=== PATIENT | male | born 1950 | race Asian ===

== ENCOUNTER 2018-05-14 22:07 | Emergency (ER) | payer MEDICARE, OTHER ==
[~2018-05-14] VITALS: Ht 167.6 cm; Wt 69.0 kg
[2018-05-15 06:16] VITALS: BP 169/74
== END 2018-05-15 06:18 | disposition home or self-care (01) ==
LOC: EDSEX 22:07 → ER 22:07
DX: R42 Dizziness and giddiness (principal); I10 Essential (primary) hypertension; W18.39XA Other fall on same level, initial encounter; Y93.89 Activity, other specified; Y92.89 Other specified places as the place of occurrence of the external cause; Y99.8 Other external cause status
CPT/HCPCS: 93005; 99283

== ENCOUNTER 2018-05-18 13:38 | Emergency (ER) | payer MEDICARE, OTHER ==
[~2018-05-18] VITALS: Ht 170.2 cm; Wt 80.0 kg
[2018-05-18 16:43] LABS: BASOPHILS % 0.7 % (0.0-2.0); EOSINOPHILS % 0.8 % (0.0-5.0); HEMATOCRIT. 38.6 % (42.0-52.0); HEMOGLOBIN. 12.1 g/dL (14.0-18.0); LYMPHOCYTES % 18.9 % (20.0-50.0); MEAN CORPUSCULAR HEMOGLOBIN 22.6 pg (28.0-32.0); MEAN CORPUSCULAR VOLUME 72.4 fL (80.0-94.0); MEAN PLATELET VOLUME 8.3 fl (7.4-10.4); MONOCYTES % 13.3 % (2.0-8.0); NEUTROPHILS % 66.3 % (40.0-76.0); PLATELET 214 x1000/uL (130-400); RED BLOOD CELL COUNT 5.33 mill/uL (4.7-6.1); RED CELL DISTRIBUTION WIDTH 15.4 % (11.6-14.6)
[2018-05-18 16:47] LABS: CHLORIDE 104 mEq/L (98-107)
[2018-05-18 22:25] VITALS: BP 140/80
== END 2018-05-18 22:30 | disposition home or self-care (01) ==
LOC: ER 13:38
DX: R55 Syncope and collapse (principal)
CPT/HCPCS: 36415; 93005; 99284

== ENCOUNTER 2019-03-17 12:39 | Inpatient (IN) | payer MEDICARE, OTHER ==
[~2019-03-17] VITALS: Ht 167.6 cm; Wt 63.5 kg
[2019-03-17] MEDS ORDERED: SODIUM CHLORIDE 0.9% 1,000 ML IV ONE (13:21)
[2019-03-17 14:31] LABS: BASOPHILS % 0.5 % (0.0-2.0); EOSINOPHILS % 1.6 % (0.0-5.0); HEMATOCRIT. 36.9 % (42.0-52.0); HEMOGLOBIN. 11.8 g/dL (14.0-18.0); LYMPHOCYTES % 15.6 % (20.0-50.0); MEAN PLATELET VOLUME 8.3 fl (7.4-10.4); MONOCYTES % 10.7 % (2.0-8.0); NEUTROPHILS % 71.6 % (40.0-76.0); PLATELET 225 x1000/uL (130-400); RED BLOOD CELL COUNT 4.92 mill/uL (4.7-6.1); RED CELL DISTRIBUTION WIDTH 15.9 % (11.6-14.6)
[2019-03-17 14:40] LABS: CHLORIDE 110 mEq/L (98-107)
[2019-03-17] MEDS ORDERED: CEFTRIAXONE 1 G PREMIX 50 ML IV ONE (15:30)
[2019-03-17 15:40] LABS: CLARITY URINE CLOUDY (CLEAR); COLOR URINE DARK YELLOW (YELLOW); KETONES URINE TRACE (NEGATIVE); LEUKOCYTE ESTERASE URINE 1+ (NEGATIVE); NITRITE URINE NEGATIVE (NEGATIVE); OCCULT BLOOD URINE 2+ (NEGATIVE); PROTEIN URINE 3+ (NEGATIVE); SPECIFIC GRAVITY URINE 1.018 (1.005-1.030); UROBILINOGEN URINE 0.2 E.U./dL (0.2-1.0)
[2019-03-17] MEDS ORDERED: CLONIDINE 0.2MG TABLET PO ONE (16:45)
[2019-03-17] MEDS ORDERED: HYDRALAZINE 20MG/ML VIAL IV ONE (20:00)
[2019-03-18] VITALS (7 sets, daily range): BP systolic 108–151; BP diastolic 65–81
[2019-03-18] MEDS ORDERED: CARB-121 PO ×2 (02:55)
[2019-03-18] MEDS ORDERED: MIDO10TA PO (02:55)
[2019-03-18] MEDS ORDERED: ASPI-1393 PO (02:55)
[2019-03-18] MEDS ORDERED: CALC650T PO (02:55)
[2019-03-18] MEDS ORDERED: AMAN100T PO (02:55)
[2019-03-18] MEDS ORDERED: TOPUD PO (02:55)
[2019-03-18] MEDS ORDERED: SENN17.27 PO (02:55)
[2019-03-18] MEDS ORDERED: CHOL200010 PO (02:55)
[2019-03-18] MEDS ORDERED: CARB1TAB5 PO (02:55)
[2019-03-18] MEDS ORDERED: ALLO100T PO (02:55)
[2019-03-18] MEDS ORDERED: ALEN70SO3 PO (02:55)
[2019-03-18] MEDS ORDERED: ACETAMINOPHEN 325MG TABLET PO PRN ×2 (03:45→22:00)
[2019-03-18] MEDS: AMLODIPINE 10MG TABLET PO SCH (08:49)
[2019-03-18] MEDS: CEFTRIAXONE 1 G PREMIX 50 ML IV SCH (14:42)
[2019-03-18] MEDS ORDERED: MEDICATION NOT ON FORMULARY EA (Cholecalciferol (Vitamin D3) (Vitamin D3) 2,000 UNIT) PO SCH (22:00)
[2019-03-18] MEDS ORDERED: CALCIUM CARBONATE 650 MG PO SCH (22:00)
[2019-03-18] MEDS ORDERED: MEDICATION NOT ON FORMULARY EA (Midodrine Hcl 10 MG) PO SCH (22:00)
[2019-03-18] MEDS ORDERED: CARBIDOPA PO SCH (22:00)
[2019-03-18] MEDS ORDERED: LEVODOPA PO SCH (22:00)
[2019-03-18] MEDS ORDERED: MEDICATION NOT ON FORMULARY EA (Alendronate Sodium 70 MG) PO SCH (22:00)
[2019-03-18] MEDS ORDERED: ENTACAPONE PO SCH (22:00)
[2019-03-18] MEDS ORDERED: [UNRECOGNIZED DRUG - OTHER] PO SCH (22:00)
[2019-03-18] MEDS ORDERED: AMANTADINE HCL 100 MG PO SCH (22:00)
[2019-03-18] MEDS: ALLOPURINOL 100 MG TABLET PO SCH (22:31)
[2019-03-18] MEDS: ASPIRIN 81MG EC TABLET PO SCH (22:31)
[2019-03-18] MEDS ORDERED: CARBIDOPA/LEVODOPA 25/100MG TABLET CR PO SCH (23:00)
[2019-03-18 23:44] LABS: BASOPHILS % 1.2 % (0.0-2.0); EOSINOPHILS % 1.2 % (0.0-5.0); HEMATOCRIT. 35.6 % (42.0-52.0); HEMOGLOBIN. 11.5 g/dL (14.0-18.0); LYMPHOCYTES % 20.3 % (20.0-50.0); MEAN CORPUSCULAR VOLUME 74.4 fL (80.0-94.0); MEAN PLATELET VOLUME 8.2 fl (7.4-10.4); MONOCYTES % 13.9 % (2.0-8.0); NEUTROPHILS % 63.4 % (40.0-76.0); PLATELET 201 x1000/uL (130-400); RED BLOOD CELL COUNT 4.79 mill/uL (4.7-6.1); RED CELL DISTRIBUTION WIDTH 15.8 % (11.6-14.6)
[2019-03-18 23:51] LABS: CHLORIDE 111 mEq/L (98-107)
[2019-03-19] VITALS (7 sets, daily range): BP systolic 114–149; BP diastolic 63–84
[2019-03-19] MEDS: CARBIDOPA/LEVODOPA 25/100MG TABLET PO SCH ×4 (05:56→16:20)
[2019-03-19] MEDS: ENTACAPONE 200MG TABLET PO SCH ×4 (05:56→16:20)
[2019-03-19] MEDS ORDERED: CHOLECALCIFEROL (D3) 1000 UNIT TABLET PO SCH (09:00)
[2019-03-19] MEDS: CALCIUM CARBONATE 1250MG TABLET (500MG ELEMENTAL CALCIUM) PO SCH ×2 (09:07→16:21)
[2019-03-19] MEDS: ASPIRIN 81MG EC TABLET PO SCH (09:07)
[2019-03-19] MEDS: MIDODRINE HCL 5MG TABLET PO SCH ×2 (09:07→16:24)
[2019-03-19] MEDS: AMANTADINE HCL 100 MG CAPSULE PO SCH ×2 (09:08→16:21)
[2019-03-19] MEDS: ALLOPURINOL 100 MG TABLET PO SCH ×2 (09:08→16:21)
[2019-03-19] MEDS: AMLODIPINE 10MG TABLET PO SCH (09:08)
[2019-03-19] MEDS: CEFTRIAXONE 1 G PREMIX 50 ML IV SCH (13:40)
[2019-03-19 18:16] LABS: T4 FREE 0.84 ng/dL (0.76-1.46)
[2019-03-19] MEDS ORDERED: SENNOSIDES 8.6MG TABLET PO SCH (21:00)
[2019-03-19] MEDS ORDERED: SENNOSIDES 17.2 MG PO SCH (21:00)
[2019-03-22] MEDS ORDERED: ALENDRONATE SODIUM 35MG TABLET PO SCH (07:40)
== END 2019-03-19 20:26 | DRG 690 ==
LOC: ER 12:39 → 7WST 21:00 → ENRESERV 23:58
PROVIDERS: ADMIT Family Medicine; ATTEND Family Medicine
DX: N39.0 Urinary tract infection, site not specified (principal); E11.22 Type 2 diabetes mellitus with diabetic chronic kidney disease; E55.9 Vitamin D deficiency, unspecified; G20 Parkinson's disease; R26.9 Unspecified abnormalities of gait and mobility; I12.9 Hypertensive chronic kidney disease with stage 1 through stage 4 chronic kidney disease, or unspecified chronic kidney disease; M10.9 Gout, unspecified; N18.9 Chronic kidney disease, unspecified; E78.5 Hyperlipidemia, unspecified; K21.9 Gastro-esophageal reflux disease without esophagitis; Z88.8 Allergy status to other drugs, medicaments and biological substances; Z79.899 Other long term (current) drug therapy; Z79.82 Long term (current) use of aspirin
CPT/HCPCS: 36415; 76770; 80061; 81003; 82962; 83036; 83880; 84439; 84443; 84484; 85379; 87186; 93005; 93306; 96361; 96365; 96375; 99291; J0360; J0696; J7030

== ENCOUNTER 2019-07-17 10:49 | Inpatient (IN) | payer MEDICARE, OTHER ==
[~2019-07-17] VITALS: Ht 167.6 cm; Wt 64.4 kg
[~2019-07-17 10:49] MED LIST: ALEN70SO3 PO; ALLO100T PO; AMAN100T PO; ASPI-1497 PO; CALC650T PO; CARB-121 PO; CARB1TAB5 PO; CHOL200010 PO; MIDO10TA PO; SENN17.27 PO; TOPUD PO
[2019-07-17 11:31] LABS: HEMOGLOBIN. 11.5 g/dL (14.0-18.0); MEAN CORPUSCULAR HEMOGLOBIN 24.1 pg (28.0-32.0); MEAN CORPUSCULAR VOLUME 73.4 fL (80.0-94.0); MEAN PLATELET VOLUME 8.6 fl (7.4-10.4); PLATELET 139 x1000/uL (130-400); RED BLOOD CELL COUNT 4.78 mill/uL (4.7-6.1)
[2019-07-17 11:34] LABS: CHLORIDE 106 mEq/L (98-107)
[2019-07-17 13:01] LABS: PLATELET ESTIMATE NORMAL
[2019-07-17] MEDS ORDERED: VANCOMYCIN 1 G PREMIX 200 ML IV ONE (13:45)
[2019-07-17] MEDS ORDERED: PIPERACILLIN/TAZ 3.375G PREMIX 50 ML IV ONE (13:45)
[2019-07-17] MEDS ORDERED: CLONIDINE 0.1MG TABLET PO PRN (16:00)
[2019-07-17] MEDS ORDERED: GUAIFENESIN 200MG/10ML SUGAR FREE UDC PO PRN (16:00)
[2019-07-17] MEDS ORDERED: ACETAMINOPHEN 650MG SUPP PR PRN ×2 (16:00)
[2019-07-17] MEDS ORDERED: DOCUSATE SODIUM 100MG CAPSULE PO PRN (16:00)
[2019-07-17] MEDS ORDERED: ACETAMINOPHEN 325MG TABLET PO SCH (16:00)
[2019-07-17] MEDS ORDERED: AMLODIPINE 10MG TABLET PO SCH (16:30)
[2019-07-17] MEDS ORDERED: ALLOPURINOL 100 MG TABLET PO NR ×2 (17:06→17:30)
[2019-07-17] MEDS ORDERED: AZITHROMYCIN 500 MG in DEXT 5% WATER 250 ML IV SCH (17:15)
[2019-07-17] MEDS ORDERED: SODIUM CHLORIDE 0.45% 1,000 ML IV SCH (17:19)
[2019-07-17 17:27] LABS: CLARITY URINE CLEAR (CLEAR); COLOR URINE YELLOW (YELLOW); KETONES URINE NEGATIVE (NEGATIVE); LEUKOCYTE ESTERASE URINE TRACE (NEGATIVE); NITRITE URINE POSITIVE (NEGATIVE); OCCULT BLOOD URINE NEGATIVE (NEGATIVE); PROTEIN URINE NEGATIVE (NEGATIVE); SPECIFIC GRAVITY URINE 1.009 (1.005-1.030); UROBILINOGEN URINE 0.2 E.U./dL (0.2-1.0)
[2019-07-17] MEDS ORDERED: BENAZEPRIL 5MG TABLET PO SCH (17:30)
[2019-07-17] MEDS ORDERED: ASPIRIN 81MG EC TABLET PO SCH (17:30)
[2019-07-17] MEDS ORDERED: CARBIDOPA/LEVODOPA 25/100MG TABLET CR PO SCH ×2 (17:30→21:00)
[2019-07-18 00:10] VITALS: BP 152/78
[2019-07-18] MEDS: ACETAMINOPHEN 650MG/20.3ML UDC GT PRN (01:17)
[2019-07-18 06:32] VITALS: BP 120/68
[2019-07-18 06:52] LABS: HEMATOCRIT. 33.1 % (42.0-52.0); HEMOGLOBIN. 10.9 g/dL (14.0-18.0); MEAN CORPUSCULAR VOLUME 72.7 fL (80.0-94.0); MEAN PLATELET VOLUME 8.4 fl (7.4-10.4); PLATELET 127 x1000/uL (130-400); RED BLOOD CELL COUNT 4.55 mill/uL (4.7-6.1); RED CELL DISTRIBUTION WIDTH 15.9 % (11.6-14.6)
[2019-07-18 07:23] LABS: CHLORIDE 105 mEq/L (98-107)
[2019-07-18 07:32] LABS: LDL CHOLESTEROL 82 mg/dL (5-100)
[2019-07-18 07:33] LABS: HDL CHOLESTEROL 39 mg/dL (40-59)
[2019-07-18 08:00] VITALS: BP 128/83
[2019-07-18] MEDS: ALLOPURINOL 100 MG TABLET PO SCH ×2 (09:36→16:33)
[2019-07-18] MEDS: ASPIRIN 81MG EC TABLET PO SCH (09:36)
[2019-07-18] MEDS: AMLODIPINE 10MG TABLET PO SCH (09:36)
[2019-07-18] MEDS: BENAZEPRIL 5MG TABLET PO SCH (09:36)
[2019-07-18] MEDS ORDERED: BENZONATATE 100MG CAPSULE PO PRN (10:45)
[2019-07-18 12:00] VITALS: BP 114/64
[2019-07-18] MEDS: CEFTRIAXONE 1 G PREMIX 50 ML IV SCH (13:35)
[2019-07-18] MEDS: CARBIDOPA/LEVODOPA 25/100MG TABLET CR PO SCH ×3 (14:03→20:56)
[2019-07-18 14:06] LABS: NUCLEATED RED BLOOD CELLS 1 /100 WBC
[2019-07-18 14:07] LABS: PLATELET ESTIMATE SLIGHTLY DECREASED
[2019-07-18 16:00] VITALS: BP 138/74
[2019-07-18] MEDS ORDERED: AZITHROMYCIN 500 MG in DEXT 5% WATER 250 ML IV SCH (16:00)
[2019-07-18] MEDS: AZITHROMYCIN 250 MG in DEXT 5% WATER 250 ML IV SCH (16:33)
[2019-07-18 18:32] LABS: COVID-19 PCR RNA DETECTED
[2019-07-18 18:33] LABS: COVID-19 PCR RNA DETECTED
[2019-07-18 20:00] VITALS: BP 132/70
[2019-07-18] MEDS: ZINC SULFATE 220 MG ( 50 ) CAPSULE PO SCH (20:56)
[2019-07-18] MEDS: ASCORBIC ACID 500 MG TABLET PO SCH (20:56)
[2019-07-18] MEDS: THIAMINE HCL 100MG TABLET PO SCH (20:56)
[2019-07-18] MEDS: HYDROXYCHLOROQUINE SULFATE 200MG TABLET PO SCH (20:57)
[2019-07-19 00:05] VITALS: BP 130/70
[2019-07-19] MEDS: ACETAMINOPHEN 650MG/20.3ML UDC GT PRN ×3 (02:54→21:42)
[2019-07-19 04:00] VITALS: BP 121/70
[2019-07-19] MEDS: CARBIDOPA/LEVODOPA 25/100MG TABLET CR PO SCH ×5 (05:18→21:39)
[2019-07-19 08:00] VITALS: BP 122/66
[2019-07-19] MEDS: THIAMINE HCL 100MG TABLET PO SCH (09:06)
[2019-07-19] MEDS: HYDROXYCHLOROQUINE SULFATE 200MG TABLET PO SCH ×2 (09:06→16:29)
[2019-07-19] MEDS: ASCORBIC ACID 500 MG TABLET PO SCH ×2 (09:06→21:38)
[2019-07-19] MEDS: AMLODIPINE 10MG TABLET PO SCH (09:06)
[2019-07-19] MEDS: ASPIRIN 81MG EC TABLET PO SCH (09:06)
[2019-07-19] MEDS: ALLOPURINOL 100 MG TABLET PO SCH ×2 (09:06→16:29)
[2019-07-19] MEDS: ZINC SULFATE 220 MG ( 50 ) CAPSULE PO SCH (09:06)
[2019-07-19] MEDS: BENAZEPRIL 5MG TABLET PO SCH (09:06)
[2019-07-19] MEDS: CEFTRIAXONE 1 G PREMIX 50 ML IV SCH (11:05)
[2019-07-19 12:00] VITALS: BP_SYST 108; BP_SYST 124; BP_DIAS 56; BP_DIAS 73
[2019-07-19] MEDS: AZITHROMYCIN 250 MG in DEXT 5% WATER 250 ML IV SCH (15:25)
[2019-07-19 16:00] VITALS: BP 98/48
[2019-07-19 20:00] VITALS: BP 132/59
[2019-07-20] VITALS: BP 132/62
[2019-07-20] MEDS ORDERED: ALLOPURINOL 100 MG TABLET PO NR (01:30)
[2019-07-20 04:00] VITALS: BP 141/75
[2019-07-20] MEDS: ACETAMINOPHEN 650MG/20.3ML UDC GT PRN ×2 (06:43→21:49)
[2019-07-20] MEDS: CARBIDOPA/LEVODOPA 25/100MG TABLET CR PO SCH ×5 (06:43→20:46)
[2019-07-20 08:00] VITALS: BP 106/65
[2019-07-20] MEDS: HYDROXYCHLOROQUINE SULFATE 200MG TABLET PO SCH ×2 (09:54→17:16)
[2019-07-20] MEDS: ALLOPURINOL 100 MG TABLET PO SCH ×2 (09:54→17:16)
[2019-07-20] MEDS: ASCORBIC ACID 500 MG TABLET PO SCH ×2 (09:54→20:46)
[2019-07-20] MEDS: ZINC SULFATE 220 MG ( 50 ) CAPSULE PO SCH (09:54)
[2019-07-20] MEDS: BENAZEPRIL 5MG TABLET PO SCH (09:55)
[2019-07-20] MEDS: THIAMINE HCL 100MG TABLET PO SCH (09:55)
[2019-07-20] MEDS: ASPIRIN 81MG EC TABLET PO SCH (09:55)
[2019-07-20] MEDS: AMLODIPINE 10MG TABLET PO SCH (09:56)
[2019-07-20 12:00] VITALS: BP 114/63
[2019-07-20] MEDS: CEFTRIAXONE 1 G PREMIX 50 ML IV SCH (12:12)
[2019-07-20 16:00] VITALS: BP 140/62
[2019-07-20] MEDS: AZITHROMYCIN 250 MG in DEXT 5% WATER 250 ML IV SCH (17:16)
[2019-07-20 20:00] VITALS: BP 108/62
[2019-07-21] VITALS: BP 99/53
[2019-07-21 04:00] VITALS: BP 108/63
[2019-07-21] MEDS: CARBIDOPA/LEVODOPA 25/100MG TABLET CR PO SCH ×5 (06:14→20:41)
[2019-07-21] MEDS: ACETAMINOPHEN 650MG/20.3ML UDC GT PRN (06:15)
[2019-07-21 08:08] VITALS: BP 113/71
[2019-07-21] MEDS: HYDROXYCHLOROQUINE SULFATE 200MG TABLET PO SCH ×2 (09:24→18:11)
[2019-07-21] MEDS: ALLOPURINOL 100 MG TABLET PO SCH ×2 (09:24→18:11)
[2019-07-21] MEDS: ASPIRIN 81MG EC TABLET PO SCH (09:24)
[2019-07-21] MEDS: ZINC SULFATE 220 MG ( 50 ) CAPSULE PO SCH (09:24)
[2019-07-21] MEDS: AMLODIPINE 10MG TABLET PO SCH (09:25)
[2019-07-21] MEDS: ASCORBIC ACID 500 MG TABLET PO SCH ×2 (09:25→20:41)
[2019-07-21] MEDS: THIAMINE HCL 100MG TABLET PO SCH (09:25)
[2019-07-21] MEDS: BENAZEPRIL 5MG TABLET PO SCH (12:02)
[2019-07-21] MEDS: CEFTRIAXONE 1 G PREMIX 50 ML IV SCH (12:03)
[2019-07-21 12:04] VITALS: BP 109/62
[2019-07-21 16:00] VITALS: BP 114/63
[2019-07-21] MEDS: AZITHROMYCIN 250 MG TABLET PO SCH (18:11)
[2019-07-21 20:00] VITALS: BP 124/56
[2019-07-22] VITALS: BP 118/54
[2019-07-22 04:00] VITALS: BP 137/62
[2019-07-22] MEDS: CARBIDOPA/LEVODOPA 25/100MG TABLET CR PO SCH ×5 (06:26→21:09)
[2019-07-22 08:00] VITALS: BP 117/68
[2019-07-22] MEDS: HYDROXYCHLOROQUINE SULFATE 200MG TABLET PO SCH ×2 (10:05→17:34)
[2019-07-22] MEDS: ZINC SULFATE 220 MG ( 50 ) CAPSULE PO SCH (10:05)
[2019-07-22] MEDS: BENAZEPRIL 5MG TABLET PO SCH (10:05)
[2019-07-22] MEDS: ASCORBIC ACID 500 MG TABLET PO SCH ×2 (10:05→21:09)
[2019-07-22] MEDS: THIAMINE HCL 100MG TABLET PO SCH (10:05)
[2019-07-22] MEDS: ALLOPURINOL 100 MG TABLET PO SCH ×2 (10:06→17:34)
[2019-07-22] MEDS: ASPIRIN 81MG EC TABLET PO SCH (10:06)
[2019-07-22] MEDS: AMLODIPINE 10MG TABLET PO SCH (10:08)
[2019-07-22 12:00] VITALS: BP 118/61
[2019-07-22] MEDS: CEFTRIAXONE 1 G PREMIX 50 ML IV SCH (13:10)
[2019-07-22] MEDS: ACETAMINOPHEN 650MG/20.3ML UDC GT PRN (13:10)
[2019-07-22 16:00] VITALS: BP 117/70
[2019-07-22] MEDS: AZITHROMYCIN 250 MG TABLET PO SCH (17:34)
[2019-07-22 20:00] VITALS: BP 117/69
[2019-07-23] VITALS: BP 115/60
[2019-07-23 04:00] VITALS: BP 134/82
[2019-07-23 08:00] VITALS: BP 113/66
[2019-07-23] MEDS: ASPIRIN 81MG EC TABLET PO SCH (09:34)
[2019-07-23] MEDS: HYDROXYCHLOROQUINE SULFATE 200MG TABLET PO SCH (09:34)
[2019-07-23] MEDS: ASCORBIC ACID 500 MG TABLET PO SCH ×2 (09:34→21:17)
[2019-07-23] MEDS: THIAMINE HCL 100MG TABLET PO SCH (09:34)
[2019-07-23] MEDS: ZINC SULFATE 220 MG ( 50 ) CAPSULE PO SCH (09:35)
[2019-07-23] MEDS: AMLODIPINE 10MG TABLET PO SCH (09:35)
[2019-07-23] MEDS: ALLOPURINOL 100 MG TABLET PO SCH ×2 (09:35→20:04)
[2019-07-23] MEDS: BENAZEPRIL 5MG TABLET PO SCH (09:35)
[2019-07-23] MEDS: CARBIDOPA/LEVODOPA 25/100MG TABLET CR PO SCH ×5 (09:37→21:17)
[2019-07-23 12:00] VITALS: BP 122/83
[2019-07-23] MEDS: CEFTRIAXONE 1 G PREMIX 50 ML IV SCH (12:56)
[2019-07-23 16:00] VITALS: BP 152/73
[2019-07-23 20:00] VITALS: BP 122/71
[2019-07-24] VITALS: BP 115/60
[2019-07-24 04:00] VITALS: BP 125/73
[2019-07-24] MEDS: CARBIDOPA/LEVODOPA 25/100MG TABLET CR PO SCH ×5 (07:05→21:18)
[2019-07-24 08:00] VITALS: BP 162/132
[2019-07-24] MEDS: ASPIRIN 81MG EC TABLET PO SCH (08:57)
[2019-07-24] MEDS: ZINC SULFATE 220 MG ( 50 ) CAPSULE PO SCH (08:57)
[2019-07-24] MEDS: AMLODIPINE 10MG TABLET PO SCH (08:57)
[2019-07-24] MEDS: ASCORBIC ACID 500 MG TABLET PO SCH ×2 (08:57→21:18)
[2019-07-24] MEDS: BENAZEPRIL 5MG TABLET PO SCH (08:58)
[2019-07-24] MEDS: THIAMINE HCL 100MG TABLET PO SCH (08:58)
[2019-07-24] MEDS: ALLOPURINOL 100 MG TABLET PO SCH ×2 (08:58→19:10)
[2019-07-24 12:00] VITALS: BP 138/83
[2019-07-24] MEDS: ACETAMINOPHEN 650MG/20.3ML UDC GT PRN (12:02)
[2019-07-24 16:00] VITALS: BP 121/67
[2019-07-24 20:00] VITALS: BP 152/71
[2019-07-25] VITALS: BP 137/57
[2019-07-25 04:00] VITALS: BP 117/67
[2019-07-25] MEDS: CARBIDOPA/LEVODOPA 25/100MG TABLET CR PO SCH ×5 (06:31→20:48)
[2019-07-25 08:00] VITALS: BP 127/64
[2019-07-25] MEDS: THIAMINE HCL 100MG TABLET PO SCH (09:42)
[2019-07-25] MEDS: BENAZEPRIL 5MG TABLET PO SCH (09:42)
[2019-07-25] MEDS: ASCORBIC ACID 500 MG TABLET PO SCH ×2 (09:42→20:48)
[2019-07-25] MEDS: ALLOPURINOL 100 MG TABLET PO SCH ×2 (09:42→18:18)
[2019-07-25] MEDS: ZINC SULFATE 220 MG ( 50 ) CAPSULE PO SCH (09:42)
[2019-07-25] MEDS: ASPIRIN 81MG EC TABLET PO SCH (09:42)
[2019-07-25] MEDS: AMLODIPINE 10MG TABLET PO SCH (09:42)
[2019-07-25 16:00] VITALS: BP 129/69
[2019-07-25 20:00] VITALS: BP 117/79
[2019-07-26] VITALS: BP 112/64
[2019-07-26 04:00] VITALS: BP 159/80
[2019-07-26] MEDS: CARBIDOPA/LEVODOPA 25/100MG TABLET CR PO SCH ×4 (06:00→18:44)
[2019-07-26 08:00] VITALS: BP 137/77
[2019-07-26] MEDS: BENAZEPRIL 5MG TABLET PO SCH (09:55)
[2019-07-26] MEDS: ASPIRIN 81MG EC TABLET PO SCH (09:55)
[2019-07-26] MEDS: ASCORBIC ACID 500 MG TABLET PO SCH (09:55)
[2019-07-26] MEDS: THIAMINE HCL 100MG TABLET PO SCH (09:55)
[2019-07-26] MEDS: ZINC SULFATE 220 MG ( 50 ) CAPSULE PO SCH (09:55)
[2019-07-26] MEDS: ALLOPURINOL 100 MG TABLET PO SCH ×2 (09:55→18:44)
[2019-07-26] MEDS: AMLODIPINE 10MG TABLET PO SCH (09:55)
[2019-07-26 12:00] VITALS: BP 144/86
[2019-07-26 20:00] VITALS: BP 149/82
[2019-07-26 20:03] VITALS: BP 149/82
== END 2019-07-26 20:55 | disposition short-term general hospital (02) | DRG 871 ==
LOC: ER 10:49 → 7WST 13:24 → ENRESERV 22:45
PROVIDERS: ADMIT Family Medicine; ATTEND Family Medicine
DX: A41.89 Other specified sepsis (principal); U07.1 COVID-19; J12.89 Other viral pneumonia; J96.00 Acute respiratory failure, unspecified whether with hypoxia or hypercapnia; N39.0 Urinary tract infection, site not specified; I10 Essential (primary) hypertension; E11.9 Type 2 diabetes mellitus without complications; K21.9 Gastro-esophageal reflux disease without esophagitis; G20 Parkinson's disease; Z66 Do not resuscitate; F02.80 Dementia in other diseases classified elsewhere, unspecified severity, without behavioral disturbance, psychotic disturbance, mood disturbance, and anxiety; J20.8 Acute bronchitis due to other specified organisms; R13.10 Dysphagia, unspecified; Z78.9 Other specified health status; Z88.8 Allergy status to other drugs, medicaments and biological substances; Z79.899 Other long term (current) drug therapy; Z74.01 Bed confinement status
CPT/HCPCS: 36415; 71045; 80053; 80061; 81003; 82962; 84484; 85025; 87420; 87804; 93005; 97163; 99285; J0456; J0696; J2543; J3370; J7060

== ENCOUNTER 2021-09-21 22:29 | Emergency (ER) | payer MEDICARE, MEDICAID ==
[~2021-09-21] VITALS: Ht 167.6 cm; Wt 63.0 kg
[~2021-09-21 22:29] MED LIST changes: -ALEN70SO3 PO; +ALEN70TA79 PO; +AMAN100C18 PO; -AMAN100T PO; -CALC650T PO; +CALC650T30 PO; -CARB-121 PO; +CARB-32 PO; -CARB1TAB5 PO; +CYAN100T43 PO; +DOCU-138 PO; +DONE5TAB7 PO; +ENTA200T2 PO; +ESCI-7 PO; +FERR325T6 PO; +FOLI-43 PO; +MELA3CAP2 PO; +MOM PO; +SENN-257 PO
[2021-09-22 02:00] VITALS: BP 101/61
== END 2021-09-22 02:25 ==
LOC: ER 22:29
DX: S00.83XA Contusion of other part of head, initial encounter (principal); S01.21XA Laceration without foreign body of nose, initial encounter; I10 Essential (primary) hypertension; E11.9 Type 2 diabetes mellitus without complications; W06.XXXA Fall from bed, initial encounter; Y93.89 Activity, other specified; Y92.122 Bedroom in nursing home as the place of occurrence of the external cause; K21.9 Gastro-esophageal reflux disease without esophagitis; Z74.01 Bed confinement status; Z79.82 Long term (current) use of aspirin; Z79.84 Long term (current) use of oral hypoglycemic drugs; Z79.899 Other long term (current) drug therapy
CPT/HCPCS: 99284

== ENCOUNTER 2022-06-19 19:01 | Inpatient (IN) | payer MEDICARE, MEDICAID ==
[~2022-06-19] VITALS: Ht 167.6 cm; Wt 54.9 kg
[2022-06-19 20:27] LABS: HEMATOCRIT. 33.7 % (42.0-52.0); HEMOGLOBIN. 10.8 g/dL (14.0-18.0); MEAN CORPUSCULAR HEMOGLOBIN 23.1 pg (28.0-32.0); MEAN CORPUSCULAR VOLUME 72.2 fL (80.0-94.0); MEAN PLATELET VOLUME 7.6 fl (7.4-10.4); PLATELET 191 x1000/uL (130-400); RED BLOOD CELL COUNT 4.67 mill/uL (4.7-6.1); RED CELL DISTRIBUTION WIDTH 15.6 % (11.6-14.6)
[2022-06-19 20:41] LABS: CHLORIDE 111 mEq/L (98-107)
[2022-06-19 20:57] LABS: CREATINE KINASE 32 IU/L (39-308); ETHANOL BLOOD < 10 mg/dL
[2022-06-19 21:07] LABS: PLATELET ESTIMATE NORMAL
[2022-06-20] MEDS ORDERED: IPRATROPIUM/ALBUTEROL 0.5-3(2.5)MG/3ML NEB HHN PRN
[2022-06-20] MEDS ORDERED: NITROGLYCERIN 0.4MG TABLET SL SL ONE
[2022-06-20] MEDS ORDERED: CLONIDINE 0.1MG TABLET PO PRN
[2022-06-20] MEDS ORDERED: ONDANSETRON HCL 4MG/2ML INJ IV PRN
[2022-06-20] MEDS ORDERED: DEXTROSE 50% WATER 50ML SYRINGE IV PRN
[2022-06-20] MEDS ORDERED: ACETAMINOPHEN 650MG/20.3ML UDC GT PRN ×2
[2022-06-20 00:10] VITALS: BP 140/101
[2022-06-20] MEDS: INSULIN LISPRO 100 UNITS/ML SUBCUT SCH ×5 (00:30→20:32)
[2022-06-20] MEDS ORDERED: MEDICATION NOT ON FORMULARY EA (Alendronate Sodium 70 MG) PO SCH (00:45)
[2022-06-20] MEDS: CALCIUM CARBONATE 500MG TABLET CHEW PO SCH ×4 (01:17→17:34)
[2022-06-20] MEDS: DEXT 5%/0.45% NACL 1000ML 1,000 ML IV SCH ×2 (01:18→12:50)
[2022-06-20] MEDS ORDERED: BISA10SU62 RC (01:38)
[2022-06-20 04:00] VITALS: BP 155/90
[2022-06-20] MEDS: LACTULOSE 20G/30ML UDC PO SCH ×3 (05:09→21:07)
[2022-06-20 06:28] LABS: HEMATOCRIT. 40.9 % (42.0-52.0); MEAN CORPUSCULAR HEMOGLOBIN 23.4 pg (28.0-32.0); MEAN CORPUSCULAR VOLUME 73.9 fL (80.0-94.0); RED BLOOD CELL COUNT 5.53 mill/uL (4.7-6.1); RED CELL DISTRIBUTION WIDTH 15.8 % (11.6-14.6)
[2022-06-20] MEDS: BLOOD SUGAR DIAGNOSTIC STRIP TEST SCH ×4 (06:42→20:22)
[2022-06-20 07:41] LABS: CHLORIDE 109 mEq/L (98-107)
[2022-06-20 07:58] LABS: HDL CHOLESTEROL 47 mg/dL (40-59); LDL CHOLESTEROL 46 mg/dL (5-100); PLATELET 176 x1000/uL (130-400); T4 FREE 0.97 ng/dL (0.76-1.46); TOTAL IRON BINDING CAPACITY 241 ug/dL (250-450)
[2022-06-20 08:00] VITALS: BP 176/95
[2022-06-20 08:02] LABS: PLATELET ESTIMATE NORMAL
[2022-06-20 08:49] LABS: FERRITIN 300 ng/mL (22-322)
[2022-06-20 08:50] LABS: PROSTRATE SPECIFIC AG TOTAL 7.02 ng/mL (0.0-4.0)
[2022-06-20 08:53] LABS: HEPATITIS B SURFACE ANTIGEN NEGATIVE
[2022-06-20 08:55] LABS: FOLIC ACID (FOLATE) SERUM >20 ng/mL ng/mL (>5.38)
[2022-06-20] MEDS: MIDODRINE HCL 5MG TABLET PO SCH ×3 (09:00→17:00)
[2022-06-20] MEDS: ENOXAPARIN 40MG/0.4ML SYR SUBCUT SCH (09:11)
[2022-06-20] MEDS: CHOLECALCIFEROL (D3) 1000 UNIT TABLET PO SCH (09:12)
[2022-06-20] MEDS: CARBIDOPA/LEVODOPA 25/100MG TABLET PO SCH ×5 (09:12→20:21)
[2022-06-20] MEDS: CITALOPRAM HYDROBROMIDE 10MG TABLET PO SCH (09:14)
[2022-06-20] MEDS: ASPIRIN 81MG EC TABLET PO SCH (09:15)
[2022-06-20] MEDS: AMANTADINE HCL 100 MG CAPSULE PO SCH (09:16)
[2022-06-20] MEDS: ALLOPURINOL 100 MG TABLET PO SCH (09:16)
[2022-06-20] MEDS: ENTACAPONE 200MG TABLET PO SCH ×5 (09:16→20:21)
[2022-06-20] MEDS: FAMOTIDINE 20MG TABLET PO SCH ×2 (09:17→20:21)
[2022-06-20] MEDS: FERROUS SULFATE 325MG TABLET PO SCH (09:17)
[2022-06-20] MEDS ORDERED: ALENDRONATE SODIUM 35MG TABLET PO SCH (10:00)
[2022-06-20 11:29] LABS: TOTAL IRON BINDING CAPACITY 237 ug/dL (250-450)
[2022-06-20 11:58] LABS: VITAMIN B12 SERUM 666 pg/mL (211-911)
[2022-06-20 16:00] VITALS: BP 141/69
[2022-06-20 17:57] LABS: CLARITY URINE CLEAR (CLEAR); COLOR URINE YELLOW (YELLOW); KETONES URINE NEGATIVE (NEGATIVE); LEUKOCYTE ESTERASE URINE 2+ (NEGATIVE); NITRITE URINE POSITIVE (NEGATIVE); OCCULT BLOOD URINE TRACE (NEGATIVE); PROTEIN URINE NEGATIVE (NEGATIVE); SPECIFIC GRAVITY URINE 1.009 (1.005-1.030); UROBILINOGEN URINE 0.2 E.U./dL (0.2-1.0)
[2022-06-20 18:17] LABS: *AMPHETAMINES SCREEN URINE NEGATIVE (NEGATIVE); *BARBITURATES SCREEN URINE NEGATIVE (NEGATIVE); *BENZODIAZEPINES SCREEN URINE NEGATIVE (NEGATIVE); *COCAINE SCREEN URINE NEGATIVE (NEGATIVE); CANNABINOID URINE SCREEN NEGATIVE (NEGATIVE); METHADONE URINE SCREEN NEGATIVE (NEGATIVE); OPIATES URINE SCREEN NEGATIVE (NEGATIVE); PHENCYCLIDINE URINE SCREEN NEGATIVE (NEGATIVE)
[2022-06-20 20:00] VITALS: BP 145/78
[2022-06-20] MEDS: MELATONIN 3MG TABLET PO SCH (20:21)
[2022-06-21] VITALS: BP 140/76
[2022-06-21] MEDS: DEXT 5%/0.45% NACL 1000ML 1,000 ML IV SCH ×2 (02:20→14:25)
[2022-06-21 04:00] VITALS: BP 131/47
[2022-06-21 05:47] LABS: HEMATOCRIT. 35.7 % (42.0-52.0); HEMOGLOBIN. 11.4 g/dL (14.0-18.0); MEAN CORPUSCULAR HEMOGLOBIN 23.3 pg (28.0-32.0); MEAN CORPUSCULAR VOLUME 72.7 fL (80.0-94.0); PLATELET 177 x1000/uL (130-400); RED BLOOD CELL COUNT 4.91 mill/uL (4.7-6.1); RED CELL DISTRIBUTION WIDTH 15.5 % (11.6-14.6)
[2022-06-21] MEDS: CARBIDOPA/LEVODOPA 25/100MG TABLET PO SCH ×5 (06:02→20:14)
[2022-06-21] MEDS: LACTULOSE 20G/30ML UDC PO SCH ×3 (06:02→22:00)
[2022-06-21] MEDS: BLOOD SUGAR DIAGNOSTIC STRIP TEST SCH ×4 (06:02→20:12)
[2022-06-21] MEDS: ENTACAPONE 200MG TABLET PO SCH ×5 (06:02→20:14)
[2022-06-21 07:04] LABS: CHLORIDE 106 mEq/L (98-107)
[2022-06-21 07:11] LABS: PHOSPHORUS 2.2 mg/dL (2.5-4.9)
[2022-06-21] MEDS: INSULIN LISPRO 100 UNITS/ML SUBCUT SCH ×4 (07:45→20:13)
[2022-06-21 07:51] LABS: PLATELET ESTIMATE NORMAL
[2022-06-21 08:00] VITALS: BP 116/65
[2022-06-21] MEDS: ASPIRIN 81MG EC TABLET PO SCH (08:29)
[2022-06-21] MEDS: AMANTADINE HCL 100 MG CAPSULE PO SCH (08:29)
[2022-06-21] MEDS: MIDODRINE HCL 5MG TABLET PO SCH ×2 (08:29→17:44)
[2022-06-21] MEDS: CALCIUM CARBONATE 500MG TABLET CHEW PO SCH ×3 (08:29→17:44)
[2022-06-21] MEDS: FERROUS SULFATE 325MG TABLET PO SCH (08:29)
[2022-06-21] MEDS: CHOLECALCIFEROL (D3) 1000 UNIT TABLET PO SCH (08:30)
[2022-06-21] MEDS: FAMOTIDINE 20MG TABLET PO SCH ×2 (08:30→20:14)
[2022-06-21] MEDS: CITALOPRAM HYDROBROMIDE 10MG TABLET PO SCH (08:30)
[2022-06-21] MEDS: ALLOPURINOL 100 MG TABLET PO SCH (08:31)
[2022-06-21] MEDS: ENOXAPARIN 40MG/0.4ML SYR SUBCUT SCH (08:31)
[2022-06-21] MEDS ORDERED: MEROPENEM 1,000 MG in SODIUM CHLORIDE 0.9% 100 ML IV SCH (10:15)
[2022-06-21 12:00] VITALS: BP 120/71
[2022-06-21] MEDS: MEROPENEM-0.9% SODIUM CHLORIDE 50 ML IV SCH ×2 (14:25→20:14)
[2022-06-21 16:00] VITALS: BP 118/79
[2022-06-21 20:00] VITALS: BP 99/65
[2022-06-21] MEDS: MELATONIN 3MG TABLET PO SCH (20:14)
[2022-06-21] MEDS ORDERED: ALBUTEROL (0.083%) 2.5MG/3ML NEB HHN PRN (21:15)
[2022-06-21] MEDS ORDERED: IPRATROPIUM BROMIDE (0.02%) 0.5MG/2.5ML NEB HHN PRN (21:15)
[2022-06-22] VITALS (7 sets, daily range): BP systolic 120–157; BP diastolic 63–91
[2022-06-22] MEDS: LACTULOSE 20G/30ML UDC PO SCH ×3 (06:00→21:51)
[2022-06-22] MEDS: DEXT 5%/0.45% NACL 1000ML 1,000 ML IV SCH ×2 (06:14→17:55)
[2022-06-22] MEDS: CARBIDOPA/LEVODOPA 25/100MG TABLET PO SCH ×5 (06:56→21:50)
[2022-06-22] MEDS: ENTACAPONE 200MG TABLET PO SCH ×5 (06:56→21:50)
[2022-06-22] MEDS: INSULIN LISPRO 100 UNITS/ML SUBCUT SCH ×4 (07:53→21:00)
[2022-06-22] MEDS: BLOOD SUGAR DIAGNOSTIC STRIP TEST SCH ×4 (07:53→21:50)
[2022-06-22] MEDS: MIDODRINE HCL 5MG TABLET PO SCH ×2 (09:00→16:55)
[2022-06-22] MEDS: CALCIUM CARBONATE 500MG TABLET CHEW PO SCH ×3 (10:02→17:48)
[2022-06-22] MEDS: CHOLECALCIFEROL (D3) 1000 UNIT TABLET PO SCH (10:02)
[2022-06-22] MEDS: ALLOPURINOL 100 MG TABLET PO SCH (10:03)
[2022-06-22] MEDS: CITALOPRAM HYDROBROMIDE 10MG TABLET PO SCH (10:03)
[2022-06-22] MEDS: AMANTADINE HCL 100 MG CAPSULE PO SCH (10:03)
[2022-06-22] MEDS: FAMOTIDINE 20MG TABLET PO SCH ×2 (10:03→22:05)
[2022-06-22] MEDS: FERROUS SULFATE 325MG TABLET PO SCH (10:03)
[2022-06-22] MEDS: ASPIRIN 81MG EC TABLET PO SCH (10:03)
[2022-06-22] MEDS: ENOXAPARIN 40MG/0.4ML SYR SUBCUT SCH (10:04)
[2022-06-22] MEDS: MEROPENEM-0.9% SODIUM CHLORIDE 50 ML IV SCH ×2 (10:06→21:50)
[2022-06-22] MEDS: MELATONIN 3MG TABLET PO SCH (21:50)
[2022-06-23] VITALS: BP 120/81
[2022-06-23 04:00] VITALS: BP 170/79
[2022-06-23] MEDS: LACTULOSE 20G/30ML UDC PO SCH ×2 (06:00→13:03)
[2022-06-23] MEDS: CARBIDOPA/LEVODOPA 25/100MG TABLET PO SCH ×4 (06:45→17:29)
[2022-06-23] MEDS: ENTACAPONE 200MG TABLET PO SCH ×4 (06:45→17:29)
[2022-06-23] MEDS: BLOOD SUGAR DIAGNOSTIC STRIP TEST SCH ×3 (07:21→16:43)
[2022-06-23] MEDS: INSULIN LISPRO 100 UNITS/ML SUBCUT SCH ×3 (07:21→17:11)
[2022-06-23 08:00] VITALS: BP 133/75
[2022-06-23] MEDS: MEROPENEM-0.9% SODIUM CHLORIDE 50 ML IV SCH (08:50)
[2022-06-23] MEDS: ENOXAPARIN 40MG/0.4ML SYR SUBCUT SCH (08:50)
[2022-06-23] MEDS: CALCIUM CARBONATE 500MG TABLET CHEW PO SCH ×3 (08:50→17:29)
[2022-06-23] MEDS: FERROUS SULFATE 325MG TABLET PO SCH (08:51)
[2022-06-23] MEDS: ALLOPURINOL 100 MG TABLET PO SCH (08:51)
[2022-06-23] MEDS: CITALOPRAM HYDROBROMIDE 10MG TABLET PO SCH (08:51)
[2022-06-23] MEDS: FAMOTIDINE 20MG TABLET PO SCH (08:51)
[2022-06-23] MEDS: CHOLECALCIFEROL (D3) 1000 UNIT TABLET PO SCH (08:51)
[2022-06-23] MEDS: AMANTADINE HCL 100 MG CAPSULE PO SCH (08:51)
[2022-06-23] MEDS: ASPIRIN 81MG EC TABLET PO SCH (08:51)
[2022-06-23] MEDS: MIDODRINE HCL 5MG TABLET PO SCH ×2 (08:52→17:00)
[2022-06-23] MEDS: DEXT 5%/0.45% NACL 1000ML 1,000 ML IV SCH (08:52)
[2022-06-23 12:00] VITALS: BP 126/75
[2022-06-23 14:14] VITALS: BP 130/68
[2022-06-23 16:00] VITALS: BP 130/68
== END 2022-06-23 19:10 | DRG 91 ==
LOC: ER 19:01 → 7WST 22:13 → EDBEDREQ 22:18 → EDBEDREQTM 22:18 → ENRESERV 22:56
PROVIDERS: ADMIT Internal Medicine; ATTEND Internal Medicine
DX: G92.8 Other toxic encephalopathy (principal); N17.0 Acute kidney failure with tubular necrosis; E72.20 Disorder of urea cycle metabolism, unspecified; N39.0 Urinary tract infection, site not specified; D50.9 Iron deficiency anemia, unspecified; E11.9 Type 2 diabetes mellitus without complications; F02.80 Dementia in other diseases classified elsewhere, unspecified severity, without behavioral disturbance, psychotic disturbance, mood disturbance, and anxiety; G20 Parkinson's disease; I10 Essential (primary) hypertension; M81.0 Age-related osteoporosis without current pathological fracture; N40.0 Benign prostatic hyperplasia without lower urinary tract symptoms; Z66 Do not resuscitate; Z74.01 Bed confinement status; Z88.8 Allergy status to other drugs, medicaments and biological substances; I69.320 Aphasia following cerebral infarction
CPT/HCPCS: 36415; 70551; 71045; 80053; 80061; 80305; 80307; 80320; 80329; 81003; 82140; 82550; 82607; 82728; 82746; 82962; 83036; 83540; 83550; 83605; 83735; 83880; 84100; 84153; 84439; 84443; 84481; 84484; 85025; 85379; 86803; 87077; 87186; 87340; 92610; 93306; 93880; 97162; 97166; 99285; A6261; J1650; J1815; J2185; G0103; G0480